=== PATIENT | male | born 1995 | race Caucasian/White ===

== ENCOUNTER 2025-01-14 22:06 | Emergency (ER) | payer BC, SELFPAY ==
[2025-01-14 22:09] VITALS: BP 149/105
[2025-01-14 22:23] LABS: Urine Albumin Negative (Neg - Trace); Urine Bilirubin Negative (Negative); Urine Character Clear (Clear); Urine Color Yellow; Urine Glucose Negative (Negative); Urine Ketone Negative (Negative); Urine Leukocyte 1+ (Negative); Urine Nitrite Negative (Negative); Urine Occult Blood 4+ (Negative); Urine Urobilinogen Negative (Neg - 1+); Urine pH 6.5 (5.0-9.0)
[2025-01-14 22:30] LABS: Urine Squamous Cell 0-2 /LPF (Few)
[2025-01-14 22:31] LABS: Urine Bacteria Few (Negative)
[2025-01-14 22:39] LABS: Urine Calcium Oxalate Crystals Seen
--- NOTE | 2025-01-15 00:22 | ED.GENMED ---
History of Present Illness
General
Chief Complaint: Flank Pain
Source: patient and previous hospital records (Outside records from [facility])
Exam Limitations: none
Time Seen by Provider: 01/14/25 23:30
Nursing documentation reviewed up to this point in time: agreed with
History of Present Illness
History of Present Illness:
This is a 29-year-old gentleman who has no significant past medical history who presented initially to [facility] January 04 with complaints of acute left flank pain. Found to have a 6 x 4 mm proximal left ureteral stone with mild
hydronephrosis. Unremarkable laboratory studies and urinalysis. Discharged with prescription for Oxy IR 5 mg, # 15 tablets. 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
cystoscopy, ureteroscopy with double-J stent placement on the left. He was prescribed a short course of Flomax, Pyridium. He has since run out of all of these medications. He is scheduled for lithotripsy February [address] Jony Sandoval
Patient continues with left flank pain, suprapubic discomfort which he describes as bladder spasms, worse today. He admits to intermittent nausea but has had no vomiting. He complains of some urinary frequency, feeling that he is unable to
completely empty his bladder, no dysuria, no gross hematuria. He has been tolerating liquids well. No fever nor chills.
He is concerned that symptoms have been ongoing and that lithotripsy is not scheduled for another month.
He did call the urologist office and apparently they are unable to bump up the lithotripsy procedure.
He presents tonight for further evaluation, second opinion.
Past History
Past History
ED Past Medical History: Other (Kidney stones)
ED Past Surgical History: Tonsilectomy
Social History
Tobacco: Non-smoker
Alcohol: Occasional
Living: with family
Employment: Employed
Family History
Family History: Other (Father with history of kidney stones)
Phy Exam
Physical Exam
Physical Exam:
GENERAL: 29-year-old gentleman appears his stated age, awake and alert, pleasant, appears in no acute distress.
EYE: anicteric
NECK: Supple, nontender, no meningismus, no significant adenopathy.
ENT: oral mucosa is moist. No rhinorrhea.
CARDIAC: Regular rate and rhythm. no murmur.
LUNGS: Clear breath sounds bilaterally, no acute respiratory distress, no wheezes/rales/rhonchi
ABDOMEN: Soft, nondistended, without focal tenderness, no r/g, mild left CVA tenderness with percussion. Normoactive BS.
NEUROLOGICAL: Alert and oriented x3, no focal neuro deficits. Gait is aragon and steady.
SKIN: Warm and dry, normal color, skin intact. No rash.
MUSCULOSKELETAL: No C/C/E. peripheral pulses are full and equal b/l. No palpable tenderness.
PSYCH: Normal and appropriate interaction.
Course
Orders/Labs/Results
Orders:
Orders
01/14/25 22:18
Urinalysis Reflex To Culture Urgent
Date Specimen was Collected: 01/14/25
Time Specimen was Collected: 22:14
Urine Microscopic Reflex Cult Urgent
Urine Culture Urgent
ROSITA Source: U
Specimen Description:
Date Specimen was Collected: 01/14/25
Time Specimen was Collected: 22:14
01/14/25 23:44
Basic Metabolic Panel Urgent
Complete Blood Count/With Diff Urgent
01/15/25 00:04
Renal & Bladder US [US Renal With Bladder] Urgent
Comment:
Reason For Exam: L flank pain, JJ stent in place 6 mm prox stone
01/15/25 01:49
Ketorolac [Toradol] 30 mg .ROUTE .STK-MED ONE
01/15/25 01:52
Ketorolac [Toradol] 30 mg IV NOW STA
01/15/25 02:00
Phenazopyridine HCl [Pyridium] 200 mg PO NOW STA
Tamsulosin [Flomax] 0.4 mg PO NOW STA
Abnormal Lab Results
01/14/25 01/15/25
22:18 00:20
Glucose 111 H mg/dl
(70-99)
Ur Occult Blood Reflex 4+ A
(Negative)
Leukocyte Esterase Rfl 1+ A
(Negative)
Urine RBC 3-6 A /HPF
(0-2)
Urine Bacteria (Reflex) Few A
(Negative)
01/15/25 00:20
01/15/25 00:20
Vital Signs
Initial and Last Documented VS:
Initial Vital Signs
Temp Pulse Resp BP Pulse Ox
98.4 F 94 16 149/105 97
01/14/25 22:09 01/14/25 22:09 01/14/25 22:09 01/14/25 22:09 01/14/25 22:09
Last Documented Vital Signs
Temp Pulse Resp BP Pulse Ox
97.7 F 77 16 135/78 97
01/15/25 00:56 01/15/25 01:55 01/15/25 01:55 01/15/25 01:51 01/15/25 01:52
MDM/Problems Addressed
Differential Diagnosis Includes:
Concern for left ureteral irritation related to double-J stent. Concern for stent malfunction/blockage. Other consideration is UTI, acute kidney injury.
Thus far urinalysis is reassuring showing 3-6 RBCs but no evidence of UTI.
Will check CBC, BMP and will check renal ultrasound with bladder. Assess for potential urinary obstruction.
I have discussed that if labs are unremarkable and no convincing evidence of stent obstruction on ultrasound, at this point there is no indication for urgent/emergent lithotripsy.
We can however assist with pain by reinstituting daily Flomax, adding Pyridium and continuing as needed oxycodone.
We can certainly refer to [facility] but no guarantee that lithotripsy procedure can be performed sooner than Liliya 7.
Chronic conditions affecting care: Other (Left ureteral proximal kidney stone.)
*Radiology
Radiology exam reviewed: radiology read reviewed (Renal ultrasound shows no evidence of hydronephrosis bilaterally. Ureteral stent in place on left. Bilateral ureteral jets are visualized.)
*Pulse Oximetry
Patient hypoxic: no
*Critical Care Note
Total Time (30-74mins, 75-104mins- exclusive of procedures): Not Applicable
Update Note
Update Note:
02:00
Patient continues to appear comfortable. Complains of 4-6 out of 10 pain but overall appears comfortable. Vital signs within normal limits. Afebrile.
Labs are unremarkable. Within normal limits. Continues with normal renal function.
Renal ultrasound is unremarkable as well showing no hydronephrosis, ureteral jets are visualized bilaterally.
Discussed results and at this point no indication for urgent lithotripsy.
I suspect his discomfort is related to the stent in place and recommend we resume Flomax, resume as needed Pyridium and I have written a prescription for Percocet as well for as needed moderate to severe pain.
Will refer to [facility] for follow-up.
I have cautioned patient that our urologist may recommend he follow-up with Dr. Sandoval at [facility]. If so recommend he contact their office to discuss possibility of moving up his lithotripsy procedure.
Return precautions discussed including severe pain, intractable vomiting or onset of fever.
ED Attending Note
-
Portions of this chart may have been created with voice recognition software.� Occasional wrong word or��sound alike� substitutions may have occurred due to the inherent limitations of voice recognition software.
Discharge Plan
Departure
Patient Disposition: Home (Routine Discharge)
Date of Disposition: 01/15/25
Time of Disposition: 02:01
Patient with high blood pressure during this ER visit?: No
Condition: Good
Discharge Problem:
Renal colic on left side, Left ureteral stent in place
Instructions: Ureteral stent placement, Kidney stone diet
Prescriptions:
New
phenazopyridine [Pyridium] 200 mg tablet
200 mg PO TID PRN (Reason: renal colic) 14 Days Qty: 30 0RF
oxycodone-acetaminophen [Percocet] 5-325 mg Tablet
1 tab PO TIDPRN PRN (Reason: pain) Qty: 14 0RF
tamsulosin [Flomax] 0.4 mg Capsule
0.4 mg PO HS Qty: 30 0RF
No Action
multivitamin Tablet
1 tab PO DAILY
Referrals:
NONE,* [Family Provider] -
Israel Ray Jr., MD [Active] - Call in 1-3 days for appt
Interventions
Interventions:
*Risk Screen - Suicide Last Done: 01/14/25 22:09
*General Assessment Last Done: 01/15/25 00:57
*Neglect/Abuse Screening Last Done: 01/14/25 22:09
*ED- Fall Risk Assessment Last Done: 01/15/25 00:57
*ED COVID-19 Vaccine History Last Done: 01/15/25 00:57
JG-Dvswjs-Yfrpmnisds Assessment Last Done: 01/15/25 00:57
ED-Male Genitourinary Assessment Last Done: 01/15/25 00:57
Discharge Date and Time
Print Language: NIGERIEN
[2025-01-15 00:30] LABS: % Basophils 0.8 % (0-2); % Eosinophils 4.5 % (0-6); % Immature Granulocytes 0.3 % (0-0.5); % Lymphocytes 27.8 % (20.5-51.1); % Monocytes 6.1 % (1.7-9.3); % Neutrophils 60.5 % (42.2-75.2); Absolute Basophils 0.1 10^3/uL (0-0.2); Absolute Eosinophils 0.3 10^3/uL (0-0.7); Absolute Monocytes 0.4 10^3/uL (0.1-0.6); Absolute Neutrophils 4.4 10^3/uL (1.4-6.5); Hematocrit 40.7 % (39.0-52.0); Hemoglobin 14.7 g/dL (13.0-18.0); Mean Corp Hgb Conc. 36.1 g/dL (33.0-37.0); Mean Corpuscular Hgb 30.2 pg (27.0-31.0); Mean Corpuscular Volume 83.7 fL (80.0-94.0); Mean Platelet Volume 9.9 fL (7.4-10.4); Nucleated Red Blood Cells % 0 % (-); Platelet Count 198 10^3/uL (130-400); Red Blood Cell Count 4.86 10^6/uL (4.70-6.10); Red Cell Dist. Width 12.3 % (11.5-14.5); White Blood Cell Count 7.3 10^3/uL (4.8-10.8)
[2025-01-15 00:52] VITALS: BMI 31.3
[2025-01-15 00:55] VITALS: BP 138/88
[2025-01-15 00:56] LABS: Blood Urea Nitrogen 14 mg/dl (9-20); Carbon Dioxide 25 mmol/L (22-30); Chloride 104 mmol/L (98-107); Estimated Creatinine Clearance > 125 ml/min; Glucose 111 mg/dl (70-99); Sodium 141 mmol/L (135-145); eGFR > 60.00
[2025-01-15 01:00] VITALS: BP 143/85
[2025-01-15 01:51] VITALS: BP 135/78
[2025-01-15] MEDS: TORADOL 30 MG IV (01:52)
[2025-01-15] MEDS: Pyridium 200 MG PO (02:31)
[2025-01-15] MEDS: FLOMAX 0.4 MG PO (02:31)
== END 2025-01-15 02:30 | disposition home or self-care (01) ==
LOC: EMR 22:06
PROVIDERS: Emergency Medicine; EMERGENCY PHYSICIAN Emergency Medicine
DX: N13.2 Hydronephrosis with renal and ureteral calculous obstruction (principal); Z87.442 Personal history of urinary calculi
CPT/HCPCS: 99282; 96374; 76770; 80048; 81003; 81015; 85025; 87086

== ENCOUNTER 2025-04-24 03:08 | Emergency (ER) | payer BC, SELFPAY ==
[2025-04-24 03:12] VITALS: BP 143/87
[2025-04-24 03:41] VITALS: BMI 32.0
[2025-04-24 04:08] LABS: % Basophils 0.4 % (0-2); % Eosinophils 3.3 % (0-6); % Immature Granulocytes 0.1 % (0-0.5); % Lymphocytes 18.5 % (20.5-51.1); % Neutrophils 73.7 % (42.2-75.2); Absolute Eosinophils 0.2 10^3/uL (0-0.7); Absolute Lymphocytes 1.3 10^3/uL (1.2-3.4); Absolute Monocytes 0.3 10^3/uL (0.1-0.6); Absolute Neutrophils 5.2 10^3/uL (1.4-6.5); Hematocrit 36.8 % (39.0-52.0); Hemoglobin 13.3 g/dL (13.0-18.0); Mean Corp Hgb Conc. 36.1 g/dL (33.0-37.0); Mean Corpuscular Hgb 30.5 pg (27.0-31.0); Mean Corpuscular Volume 84.4 fL (80.0-94.0); Mean Platelet Volume 9.8 fL (7.4-10.4); Nucleated Red Blood Cells % 0 % (-); Platelet Count 168 10^3/uL (130-400); Red Blood Cell Count 4.36 10^6/uL (4.70-6.10); Red Cell Dist. Width 12.6 % (11.5-14.5)
[2025-04-24] MEDS: TORADOL 15 MG IV (04:12)
--- NOTE | 2025-04-24 04:18 | ED.GENMED ---
History of Present Illness
General
Chief Complaint: Flank Pain
Source: patient
Exam Limitations: none
Time Seen by Provider: 04/24/25 03:33
Nursing documentation reviewed up to this point in time: agreed with
History of Present Illness
History of Present Illness:
Note:
CHIEF COMPLAINT(S)
Flank pain
HISTORY OF PRESENT ILLNESS
The patient is a 29-year-old male with a past medical history of kidney stones presenting with back pain that began as intermittent discomfort in the past few days but acutely worsened early this morning. The pain is reminiscent of a prior
experience with kidney stones. The pain is localized to the left flank back, with an additional sharp and localized pain on the same side. The patient denies nausea, vomiting, recent back injuries, heavy lifting, or trauma. He reports a history of
degenerative disc disease but no recent exacerbations associated with this condition. 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 There is no burning with urination, pelvic pain, or
difficulty walking, but the patient reports leg weakness on the affected side and no numbness or tingling in the genital area. There is no fevers or chills. there is no incontinence. A history of kidney stones was noted, with past surgical
intervention being lithotripsy in January for two large stones that could not pass.
PAST MEDICAL HISTORY
History of kidney stones.
Degenerative disc disease.
PAST SURGICAL HISTORY
Lithotripsy for kidney stones in January.
MEDICATIONS
The patient reports no current medication use.
REVIEW OF SYSTEMS
See HPI
PHYSICAL EXAM
General: Patient is well appearing and in no acute distress; non-toxic
Skin: Warm and dry, no rashes or lesions
Head: Normocephalic, atraumatic
Eyes: Sclera non-icteric. EOMs intact.
Cardiac: Regular rate and rhythm, no murmurs
Peripheral Vascular: No lower extremity swelling or edema
Pulm: Normal respiratory effort
Abdomen: No abdominal tenderness to palpation, left-sided CVA tenderness noted
Musculoskeletal: No midline spinal tenderness
Neuro: CN II-XII intact, no focal neurologic deficits.
Psychiatric: Appropriate mood and affect.
PLAN
Administer ketorolac (intravenous form) for pain management, provide intravenous fluids, and conduct a CT scan to confirm the presence of a stone and rule out other causes of the back pain.
DIFFERENTIAL DIAGNOSIS
The Differential Diagnosis includes, in no particular order and is not limited to:
1. Nephrolithiasis
2. Pyelonephritis
3. Muscular strain
4. Degenerative disc disease exacerbation
5. Aortic pathology
CHART REVIEW
Reviewed ER physician recommendation from 01/15/2025 patient seen for renal colic on the left side, he was seen shortly after he had stent placed
MDM/DISPOSITION
The patient is a 29-year-old male with a past medical history of kidney stones presenting with back pain that began as intermittent discomfort in the past few days but acutely worsened early this morning. The pain is reminiscent of a prior
experience with kidney stones. Physical exam is well-appearing in no acute distress he is afebrile, he does have left-sided CVA tenderness noted. His CBC and CMP are unremarkable. Is no evidence of acute kidney injury. She is urinalysis does not
show any signs of infection but does show occult blood. His CT scan is consistent with a stone in the left proximal ureter with mild left hydronephrosis. Discussed outpatient management. Prescription given for Flomax and prescription strength
ibuprofen. Recommend following up with urology. Patient stable for discharge discussed close return precautions
Past History
Past History
ED Past Medical History: Other (Kidney stones)
ED Past Surgical History: Tonsilectomy
Social History
Tobacco: Non-smoker
Alcohol: Occasional
Living: with family
Employment: Employed
Family History
Family History: Other (Father with history of kidney stones)
Phy Exam
Physical Exam
Physical Exam:
see hpi
Course
Orders/Labs/Results
Orders:
Orders
04/24/25 03:51
Complete Blood Count/With Diff Urgent
Comprehensive Metabolic Panel Urgent
04/24/25 03:58
Urinalysis Reflex To Culture Urgent
Date Specimen was Collected: 04/24/25
Time Specimen was Collected: 03:53
Urine Microscopic Reflex Cult Urgent
04/24/25 04:05
CT Abd/pel Without Iv Or Oral Urgent
Comment:
Reason For Exam: left flank pain
Ketorolac [Toradol] 15 mg IV NOW STA
Abnormal Lab Results
04/24/25 04/24/25
03:51 03:58
RBC 4.36 L 10^6/uL
(4.70-6.10)
Hct 36.8 L %
(39.0-52.0)
Lymphocytes % 18.5 L %
(20.5-51.1)
Chloride 108 H mmol/L
(98-107)
Glucose 108 H mg/dl
(70-99)
Ur Occult Blood Reflex 4+ A
(Negative)
Urine RBC 80-90 A /HPF
(0-2)
Urine Bacteria (Reflex) Few A
(Negative)
Urine Albumin (Reflex) 3+ A
(Neg - Trace)
04/24/25 03:51
04/24/25 03:51
Vital Signs
Initial and Last Documented VS:
Initial Vital Signs
Temp Pulse Resp BP Pulse Ox
98.3 F 82 20 143/87 98
04/24/25 03:12 04/24/25 03:12 04/24/25 03:12 04/24/25 03:12 04/24/25 03:12
Last Documented Vital Signs
Temp Pulse Resp BP Pulse Ox
98.3 F 82 20 137/76 93
04/24/25 03:12 04/24/25 03:12 04/24/25 03:12 04/24/25 05:00 04/24/25 05:45
*Pulse Oximetry
SaO2: 98
Oxygen Mode of Delivery: Room air
*Critical Care Note
Total Time (30-74mins, 75-104mins- exclusive of procedures): Not Applicable
ED Attending Note
-
Portions of this chart may have been created with voice recognition software.� Occasional wrong word or��sound alike� substitutions may have occurred due to the inherent limitations of voice recognition software.
Discharge Plan
Departure
Patient Disposition: Home (Routine Discharge)
Date of Disposition: 04/24/25
Time of Disposition: 05:43
Patient with high blood pressure during this ER visit?: Yes
Condition: Good
Discharge Problem:
Left renal stone
Instructions: Kidney Stones (DC), How to Strain Your Urine, BLOOD PRESSURE
Prescriptions:
New
tamsulosin [Flomax] 0.4 mg capsule
0.4 mg PO DAILY 7 Days Qty: 7 0RF
ibuprofen 600 mg tablet
600 mg PO Q6H PRN (Reason: Pain) 3 Days Qty: 12 0RF
No Action
multivitamin Tablet
1 tab PO DAILY
phenazopyridine [Pyridium] 200 mg tablet
200 mg PO TID PRN (Reason: renal colic) 14 Days Qty: 30 0RF
oxycodone-acetaminophen [Percocet] 5-325 mg Tablet
1 tab PO TIDPRN PRN (Reason: pain) Qty: 14 0RF
tamsulosin [Flomax] 0.4 mg Capsule
0.4 mg PO HS Qty: 30 0RF
Referrals:
Guillermo Deluna MD [Active, Urology] - Call in 1-3 days for appt
NONE,* [Family Provider, Internal Medicine]
Activity Restrictions/Additional Instructions:
Flomax has been sent to your pharmacy. Please take 1 tablet once daily until stone passage.
Prescription strength ibuprofen has been sent to your pharmacy. You can 1 tablet every 6 hours as needed for pain.
Please strain your urine at home.
PLEASE RETURN TO THE EMERGENCY DEPARTMENT SHOULD YOU DEVELOP FEVERS OR CHILLS, BURNING WITH URINATION, URINARY FREQUENCY, CHEST PAIN, SHORTNESS OF BREATH, ACUTE WORSENING OF YOUR SYMPTOMS, OR ANY OTHER SIGNS OR SYMPTOMS WORRISOME TO YOU.
Interventions
Interventions:
*Risk Screen - Suicide Last Done: 04/24/25 03:12
*General Assessment Last Done: 04/24/25 03:12
*Neglect/Abuse Screening Last Done: 04/24/25 03:12
*ED- Fall Risk Assessment Last Done: 04/24/25 03:12
*ED COVID-19 Vaccine History Last Done: 04/24/25 03:12
*Nursing Disposition Last Done: 04/24/25 05:51
PO-Mqiito-Xsxmoekanw Assessment Last Done: 04/24/25 03:39
ED-Male Genitourinary Assessment Last Done: 04/24/25 03:39
Discharge Date and Time
Discharge Date/Time: 04/24/25 06:01
Print Language: DJIBOUTIAN
[2025-04-24 04:20] LABS: Urine Albumin 3+ (Neg - Trace); Urine Bilirubin Negative (Negative); Urine Character Clear (Clear); Urine Color Amber; Urine Glucose Negative (Negative); Urine Ketone Negative (Negative); Urine Leukocyte Negative (Negative); Urine Nitrite Negative (Negative); Urine Occult Blood 4+ (Negative); Urine Urobilinogen Negative (Neg - 1+)
[2025-04-24 04:34] LABS: ALT (SGPT) 34 U/L (0-50); AST (SGOT) 27 U/L (17-59); Albumin 4.2 g/dl (3.5-5.0); Alkaline Phosphatase 65 U/L (38-126); Blood Urea Nitrogen 17 mg/dl (9-20); Calcium 9.4 mg/dl (8.4-10.2); Carbon Dioxide 26 mmol/L (22-30); Chloride 108 mmol/L (98-107); Estimated Creatinine Clearance > 125 ml/min; Glucose 108 mg/dl (70-99); Potassium 3.6 mmol/L (3.5-5.1); Sodium 142 mmol/L (135-145); Total Bilirubin 0.6 mg/dl (0.2-1.3); Total Protein 6.4 g/dl (6.3-8.2); eGFR > 60.00
[2025-04-24 04:48] VITALS: BP 131/71
[2025-04-24 05:00] VITALS: BP 137/76
[2025-04-24 05:46] LABS: Urine Squamous Cell 0-2 /LPF (Few)
[2025-04-24 05:47] LABS: Urine Bacteria Few (Negative); Urine Red Blood Cell 80-90 /HPF (0-2); Urine White Cell 0-2 /HPF (0-5)
== END 2025-04-24 06:01 | disposition home or self-care (01) ==
LOC: EMR 03:08
PROVIDERS: EMERGENCY PHYSICIAN Student in an Organized Health Care Education/Training Program
DX: N13.2 Hydronephrosis with renal and ureteral calculous obstruction (principal); Z87.442 Personal history of urinary calculi
CPT/HCPCS: 99285; 96374; 74176; 80053; 81003; 81015; 85025